=== PATIENT | male | born 1945 | race Two or more races ===

== ENCOUNTER 2024-09-11 08:00 | Outpatient (CLI) | payer OTHER ==
[~2024-09-11] VITALS: Ht 172.7 cm; Wt 76.2 kg
[2024-09-11 09:16] LABS: PH,URINE 5.5 (5.0-8.0); URINE APPEARANCE Clear; URINE BILIRRUBIN Negative (NEGATIVE); URINE BLOOD Trace; URINE COLOR Yellow; URINE GLUCOSE Negative (NEGATIVE); URINE KETONE Negative (NEGATIVE); URINE LEUKOCYTE Negative; URINE NITRATE Negative; URINE PROTEIN Negative (NEGATIVE); URINE UROBILINOGEN 0.2 E.U./dl
[2024-09-11 09:17] LABS: URINE BACTERIA 6.2 uL (0.0-1933); URINE EPITHELIAL CELLS 3.7 uL (0.0-38.8); URINE RBC 26.4 uL (0.0-20.8); URINE WBC 6.9 uL (0.0-23.2)
[2024-09-11 09:26] LABS: URINE CAST 0.61 uL (0.0-1.40)
[2024-09-11 09:32] LABS: HEMATOCRIT 37.6 % (39.0-48.0); HEMOGLOBIN 12.9 g/dL (13-16.00); MEAN CELL VOLUME 99.4 fL (80.0-100.00); MEAN CORPUSCULAR HEMOGLOBIN 34.2 pg (27.00-32.0); MEAN CORPUSCULAR HGB CONC 34.4 g/dl (32.0-36.0); PLATELET COUNT 200 K/uL (150-450); RED BLOOD COUNT 3.78 M/uL (4.00-6.00); RED CELL DISTRIBUTION WIDTH 14.8 % (11.5-14.5)
[2024-09-11] MEDS ORDERED: CHILDREN'S ASPI81 MG PO (09:48)
[2024-09-11] MEDS ORDERED: TOPROL XL100 M1 PO (09:48)
[2024-09-11] MEDS ORDERED: BRIVIACT50 MG PO (09:48)
[2024-09-11] MEDS ORDERED: TAMS0.4C PO (09:49)
[2024-09-11] MEDS ORDERED: LASIX20 MG PO (09:49)
[2024-09-11] MEDS ORDERED: ISOSORBIDE DINI30 MG PO (09:49)
[2024-09-11] MEDS ORDERED: AVAPRO75 MG PO (09:49)
[2024-09-11] MEDS ORDERED: SYNTHROID125 MCG PO (09:50)
[2024-09-11 09:51] VITALS: BP 148/78
[2024-09-11 09:59] LABS: INR 1.1; PARTIAL THROMBOPLASTIN TIME 26.8 SECONDS (22.0-34.0); PROTHROMBIN TIME 11.9 SECONDS (9.0-11.5)
[2024-09-11 11:05] LABS: BILIRUBIN TOTAL 0.93 mg/dL (0.3-1.2); CALCIUM 9.8 mg/dL (8.5-10.1); CREATININE SERUM 0.68 mg/dL (0.70-1.30); GFR 113.07; GLOBULINA 3.4 G/DL (2.4-3.5); POTASSIUM 4.38 mEq/L (3.5-5.1); TOTAL PROTEIN 7.4 gm/dL (6.4-8.2)
[2024-09-11] MEDS ORDERED: BRILINTA60 MG PO (13:16)
== END 2024-09-11 08:01 | disposition home or self-care (01) ==
LOC: RAD 08:00 → ADM 08:30 → SURH 09-17 07:00 → EDBD 09-17 08:30 → CIR.AMB 09-17 08:30 → EDSTATUS 09-17 08:30 → SURH 09-17 08:30
PROVIDERS: ATTEND Orthopaedic Surgery Sports Medicine
DX: M16.11 Unilateral primary osteoarthritis, right hip (principal); Z20.822 Contact with and (suspected) exposure to COVID-19; D68.9 Coagulation defect, unspecified; Z01.818 Encounter for other preprocedural examination; I10 Essential (primary) hypertension

== ENCOUNTER 2025-08-06 11:00 | Inpatient (IN) | payer OTHER ==
[~2025-08-06] VITALS: Ht 152.4 cm; Wt 82.6 kg
[~2025-08-06 11:00] MED LIST: AVAPRO75 MG PO; BRILINTA60 MG PO; BRIVIACT50 MG PO; CHILDREN'S ASPI81 MG PO; ISOSORBIDE DINI30 MG PO; LASIX20 MG PO; SYNTHROID125 MCG PO; TAMS0.4C PO; TOPROL XL100 M1 PO
[2025-08-06] MEDS ORDERED: PEPCID40 MG PO (12:20)
[2025-08-06] MEDS ORDERED: OMEPRAZOLE-BIC1 EAC1 PO (12:20)
[2025-08-06 12:21] VITALS: BP 124/71
[2025-08-12] MEDS ORDERED: TRANEXAMIC ACID 100MG/1ML (1000MG) AMPUL ONE (08:42)
[2025-08-12] MEDS ORDERED: CEFAZOLIN SODIUM 1,000 MG VIAL ONE ×2 (08:42→17:27)
[2025-08-12] MEDS ORDERED: ISOPROPYL ALCOHOL 30 ML OUNCE TOP ONE (11:27)
[2025-08-12] MEDS ORDERED: VANCOMYCIN HCL 1,000 MG VIAL ONE (11:27)
[2025-08-12] MEDS ORDERED: MORPHINE SULFATE 4 MG/ML CARTRIDGE IV ONE (12:30)
[2025-08-12] MEDS ORDERED: KETOROLAC TROMETHAMINE 30 MG VIAL IV ONE (12:30)
[2025-08-12] MEDS ORDERED: MORPHINE SULFATE 4 MG/ML CARTRIDGE IV PRN (14:30)
[2025-08-12] MEDS ORDERED: SODIUM CHLORIDE 0.45 % 1,000 ML IV SCH (14:30)
[2025-08-12] MEDS ORDERED: ONDANSETRON HCL 2 MG/ML VIAL IV PRN (14:30)
[2025-08-12] MEDS ORDERED: GENTAMICIN SULFATE 40 MG/ML VIAL ONE (16:09)
[2025-08-12] MEDS ORDERED: GENTAMICIN SULFATE 40 MG/ML VIAL IV SCH (17:00)
[2025-08-12] MEDS ORDERED: CEFAZOLIN SODIUM 1,000 MG VIAL IV SCH (18:00)
[2025-08-12 22:43] VITALS: BP 148/69; O2SAT 97
[2025-08-13 02:13] VITALS: BP 138/74; O2SAT 98
[2025-08-13] MEDS ORDERED: LEVOTHYROXINE SODIUM 125 MCG TABLET PO SCH (06:00)
[2025-08-13 06:32] LABS: BASO % 0.5 % (0.1-1.2); EOS # 0.04 (0.04-0.54); EOS % 0.7 % (0.7-7.0); LYMPH # 0.91 (1.18-3.74); LYMPH % 15.0 % (19.3-53.1); MEAN PLATELET VOLUME 10.30 fl (9.4-12.4); MONO # 0.66 (0.24-0.82); MONO % 10.9 % (4.7-12.5); NEUT # 4.39 (1.56-6.13); NEUT % 72.6 % (34.0-71.1); RED CELL DISTRIBUTION WIDTH 13.8 % (11.6-14.4)
[2025-08-13] MEDS ORDERED: ACETAMINOPHEN WITH CODEINE 1 UDTAB TABLET PO PRN (08:45)
[2025-08-13] MEDS ORDERED: METOPROLOL SUCCINATE 50 MG TAB.SR.24H PO SCH (09:00)
[2025-08-13] MEDS ORDERED: IRBESARTAN 75 MG TABLET PO SCH (09:00)
[2025-08-13] MEDS ORDERED: IRON FUM,PS/FOLIC/BCOMP,C NO.9 1 CAP CAPSULE PO SCH (09:00)
[2025-08-13] MEDS ORDERED: BACITRACIN 28.35 GM OINT.TUBE TOP SCH (09:00)
[2025-08-13] MEDS ORDERED: RIVAROXABAN 10 MG TAB PO SCH (09:00)
[2025-08-13] MEDS ORDERED: CELECOXIB 200 MG CAPSULE PO SCH (09:00)
[2025-08-13] MEDS ORDERED: SENNA/DOCUSATE SODIUM 1 TAB TABLET PO SCH (09:00)
[2025-08-13] MEDS ORDERED: TAMSULOSIN HCL 0.4 MG CAP PO SCH (09:00)
[2025-08-13] MEDS ORDERED: ISOSORBIDE DINITRATE 30 MG TABLET PO SCH (09:00)
[2025-08-13 16:42] VITALS: BP 116/60; O2SAT 98
[2025-08-13] MEDS ORDERED: SULFAMETHOXAZOLE/TRIMETHOPRIM DS 1 TAB PO SCH (21:00)
[2025-08-13 21:56] LABS: COVID-19 AG NEGATIVE (NEGATIVE)
[2025-08-13 22:12] LABS: ALT/SGPT 21.0 U/L (12-78); AST/SGOT 33.0 U/L (15-37); BILIRUBIN TOTAL 0.82 mg/dL (0.3-1.2); BUN CREA RATIO 19.0 (7.0-25.0); CREATININE SERUM 0.8 mg/dL (0.70-1.30); GFR 93.49; GLOBULINA 2.5 G/DL (2.4-3.5); GLUCOSE FASTING 156.0 mg/dL (65-100); OSMOLALITY SERUM 280.0 MOSM/KG (275-295)
[2025-08-14 00:39] VITALS: BP 109/67; O2SAT 98
[2025-08-14] MEDS ORDERED: INTEGRA PLUS C1 EACH PO (06:27)
[2025-08-14] MEDS ORDERED: XARELTO10 MG PO (06:27)
[2025-08-14] MEDS ORDERED: Septra Ds Tablet PO (06:27)
[2025-08-14] MEDS ORDERED: ACETAMINOPHEN-1 EAC2 PO (06:28)
[2025-08-14 06:33] LABS: BASO % 0.5 % (0.1-1.2); EOS # 0.14 (0.04-0.54); EOS % 1.6 % (0.7-7.0); LYMPH # 1.12 (1.18-3.74); LYMPH % 13.0 % (19.3-53.1); MEAN PLATELET VOLUME 10.80 fl (9.4-12.4); MONO # 0.97 (0.24-0.82); MONO % 11.3 % (4.7-12.5); NEUT # 6.30 (1.56-6.13); NEUT % 73.3 % (34.0-71.1); RED CELL DISTRIBUTION WIDTH 13.9 % (11.6-14.4)
[2025-08-14 08:00] VITALS: BP 10/57; O2SAT 95
== END 2025-08-14 17:49 | DRG 470 ==
LOC: SURH 08-12 07:00 → O/R 08-12 07:00 → SURH 08-12 11:00
PROVIDERS: ADMIT Orthopaedic Surgery Sports Medicine; ATTEND Orthopaedic Surgery Sports Medicine
PROC: 0SR902Z Replacement of Right Hip Joint with Metal on Polyethylene Synthetic Substitute, Open Approach (ICD-10-PCS; principal; 2025-08-12 11:30)
DX: M16.11 Unilateral primary osteoarthritis, right hip (principal); Z96.641 Presence of right artificial hip joint